=== PATIENT | female | born 1990 | race Caucasian/White ===

== ENCOUNTER 2016-09-02 08:09 | Emergency (ER) | payer MEDICAID ==
[~2016-09-02] VITALS: Ht 160 cm; Wt 58.5 kg
[~2016-09-02 08:09] MED LIST: ACET325T38 PO; AMOX-358 PO; AMOX500C2 PO; BENZ56AE TP; CLIN150C17 PO; CODE-54 PO; DBC1O30 TOP; DCS100C PO; FERR-74 PO; FRS325T PO; IBP600T1 PO; IBUP-1773 PO; LACT1CAP62 PO; METR500T PO; PREN1TAB39 PO
[2016-09-02 08:34] LABS: BASOPHILS % (AUTO) 0 % (0-10); EOSINOPHILS % (AUTO) 0 % (0-10); LYMPHOCYTES # (AUTO) 1.2 X 10^3 (1.0-4.0); LYMPHOCYTES % (AUTO) 11 % (12-44); MEAN CORPUSCULAR HEMOGLOBIN 28 PG (25-34); MEAN CORPUSCULAR HGB CONC 34 G/DL (32-36); MEAN CORPUSCULAR VOLUME 82 FL (80-99); MEAN PLATELET VOLUME 10.4 FL (7.4-10.4); MONOCYTES # (AUTO) 0.2 X 10^3 (0.0-1.0); MONOCYTES % (AUTO) 2 % (0-12); NEUTROPHILS # (AUTO) 9.7 X 10^3 (1.8-7.8); NEUTROPHILS % (AUTO) 88 % (42-75); PLATELET COUNT 313 10^3/uL (130-400); RED BLOOD COUNT 5.26 10^6/uL (4.35-5.85); RED CELL DISTRIBUTION WIDTH 12.9 % (10.0-14.5); WHITE BLOOD COUNT 11.1 10^3/uL (4.3-11.0)
[2016-09-02 08:54] LABS: ALANINE AMINOTRANSFERASE 13 U/L (0-55); ALBUMIN 4.7 G/DL (3.2-4.5); ANION GAP 12 MMOL/L (5-14); ASPARTATE AMINO TRANSFERASE 15 U/L (5-34); BILIRUBIN,TOTAL 0.7 MG/DL (0.1-1.0); BLOOD UREA NITROGEN 8 MG/DL (7-18); BUN/CREATININE RATIO 11; CALCIUM 9.8 MG/DL (8.5-10.1); CARBON DIOXIDE 21 MMOL/L (21-32); CHLORIDE 107 MMOL/L (98-107); CREATININE SERUM 0.76 MG/DL (0.60-1.30); GFR ESTIMATED > 60; GLUCOSE 113 MG/DL (70-105); SODIUM 140 MMOL/L (135-145); TOTAL PROTEIN 8.2 G/DL (6.4-8.2)
[2016-09-02 09:34] LABS: BAND NEUTROPHILS 0 %; BASOPHILS % (MANUAL) 0 %; EOSINOPHILS % (MANUAL) 0 %; LYMPHOCYTES % (MANUAL) 8 %; NEUTROPHILS % (MANUAL) 88 %
--- NOTE | 2016-09-02 10:40 | ED Cardiac General ---
History of Present Illness General Chief Complaint: Cardiac/General Problems Stated Complaint: IRR HEART RATE/CHEST PRESSURE Nursing Triage Note: PT REPORTS PALPITATIONS AND DIZZINESS UPON WAKING FOR THE LAST 2 DAYS. SHE REPORTS BEING SEEN AND TX AT [facility] LAST NOC FOR SAME S/S. PT DENIES CP, SOA, N/V. Source: patient Exam Limitations: no limitations History of Present Illness Time seen by provider: 10:39 Initial Comments To ER with chest tightness and palpitations with exertion since yesterday. Denies any unilateral leg swelling. She was seen at [facility] last night for the same. She denies shortness of breath nausea or vomiting. She denies fevers or chills but she's had a similar episode several years ago but nothing was found with this. Timing/Duration: 1-2 days Severity: moderate Prior CP/Workup: no prior chest pain NTG SL CHRISTIAN SCIENCE PRACTITIONER: No ASA po CHRISTIAN SCIENCE PRACTITIONER: No Allergies and Home Medications Allergies Coded Allergies: butorphanol (Unverified Allergy, Unknown, 09/29/15) hallucinations Home Medications Ibuprofen 600 Mg Tablet #40 600 MG PO Q6H Prescribed by: KATRINA WANG on 09/22/15 0914 Metoprolol Succinate 25 Mg Tab.er.24h #20 25 MG PO DAILY Prescribed by: LISS ALCANTARA on 09/02/16 1212 Review of Systems Constitutional: see HPI EENTM: No Symptoms Reported Respiratory: No Symptoms Reported Cardiovascular: See HPIDenies Irregular Heart Rate, Denies Lightheadedness, PalpitationsDenies Syncope Gastrointestinal: See HPI Genitourinary: No Symptoms Reported Musculoskeletal: no symptoms reported Skin: no symptoms reported Psychiatric/Neurological: No Symptoms Reported Endocrine: No Symptoms Reported Hematologic/Lymphatic: No Symptoms Reported Past Qdbnvzk-Drwpiw-Tdgiaf Hx Patient Social History Alcohol Use: Denies Use Recreational Drug Use: No Smoking Status: Never a Smoker Recent Foreign Travel: No Contact w/Someone Who Travel: No Recent Infectious Disease Expo: No Recent Hopitalizations: No Immunizations Up To Date Tetanus Booster (TDap): Less than 5yrs PED Vaccines UTD: Yes Date of Influenza Vaccine: Apr 25, 2016 Surgeries HX Surgeries: Yes (T&A) Surgeries: Adenoidectomy, Tonsillectomy Respiratory Hx Respiratory Disorders: No Cardiovascular Hx Cardiac Disorders: No Neurological Hx Neurological Disorders: No Reproductive System Hx Reproductive Disorders: No Female Reproductive Disorders: Denies Genitourinary Hx Genitourinary Disorders: No Gastrointestinal Hx Gastrointestinal Disorders: No Musculoskeletal Hx Musculoskeletal Disorders: No Endocrine Hx Endocrine Disorders: No HEENT HX ENT Disorders: No Cancer Hx Cancer: No Psychosocial Hx Psychiatric Problems: No Integumentary HX Skin/Integumentary Disorder: No Blood Transfusions Hx Blood Disorders: No Adverse Reaction to a Blood Tr: No Family Medical History Family Medial History: FH: skin cancer 19 FATHER, Onset:40's - 50 Thyroid disease 19 FATHER, Onset:40's - 50 Physical Exam Vital Signs Vital Sign - Last 12Hours 09/02/16 08:10 Temp 97.4 Pulse 110 Resp 16 B/P 122/76 Pulse Ox 99 Capillary Refill : Less Than 3 Seconds General Appearance: No Apparent Distress WD/WN HEENT: PERRL/EOMI TMs Normal Respiratory: No Accessory Muscle Use No Respiratory Distress Cardiovascular: No Edema No Murmur Normal Peripheral Pulses Tachycardia (110- 120 sinus. Upon standing heart rate increases to 140-150 without a decrease in blood pressure) Gastrointestinal: Normal Bowel Sounds Non Tender Soft Extremity: Normal Capillary Refill Normal Inspection Neurologic/Psychiatric: Alert Oriented x3 No Motor/Sensory Deficits Skin: Normal Color Warm/Dry Progress/Results/Core Measures Results/Orders Lab Results Laboratory Tests Test 09/02/16 08:25 09/02/16 08:35 09/02/16 11:30 Range/Units Alanine Aminotransferase (ALT/SGPT) 13 0-55 U/L Albumin 4.7 H 3.2-4.5 G/DL Alkaline Phosphatase 69 40-136 U/L Anion Gap 12 5-14 MMOL/L Aspartate Amino Transf (AST/SGOT) 15 5-34 U/L BUN/Creatinine Ratio 11 Band Neutrophils 0 % Basophils # (Auto) 0.0 0.0-0.1 10^3/uL Basophils % (Manual) 0 % Basophils (%) (Auto) 0 0-10 % Blood Morphology Comment NORMAL Blood Urea Nitrogen 8 7-18 MG/DL Calcium Level 9.8 8.5-10.1 MG/DL Carbon Dioxide Level 21 21-32 MMOL/L Chloride Level 107 98-107 MMOL/L Creatinine 0.76 0.60-1.30 MG/DL Eosinophils # (Auto) 0.0 0.0-0.3 10^3/uL Eosinophils % (Manual) 0 % Eosinophils (%) (Auto) 0 0-10 % Estimat Glomerular Filtration Rate > 60 Glucose Level 113 H 70-105 MG/DL Hematocrit 43 35-52 % Hemoglobin 14.6 11.5-16.0 G/DL Lymphocytes # (Auto) 1.2 1.0-4.0 X 10^3 Lymphocytes % (Manual) 8 % Lymphocytes (%) (Auto) 11 L 12-44 % Mean Corpuscular Hemoglobin 28 25-34 PG Mean Corpuscular Hemoglobin Concent 34 32-36 G/DL Mean Corpuscular Volume 82 80-99 FL Mean Platelet Volume 10.4 7.4-10.4 FL Monocytes # (Auto) 0.2 0.0-1.0 X 10^3 Monocytes % (Manual) 4 % Monocytes (%) (Auto) 2 0-12 % Neutrophils # (Auto) 9.7 H 1.8-7.8 X 10^3 Neutrophils % (Manual) 88 % Neutrophils (%) (Auto) 88 H 42-75 % Platelet Count 313 130-400 10^3/uL Potassium Level 4.0 3.6-5.0 MMOL/L Red Blood Count 5.26 4.35-5.85 10^6/uL Red Cell Distribution Width 12.9 10.0-14.5 % Serum Test, Qualitative NEGATIVE NEGATIVE Sodium Level 140 135-145 MMOL/L Thyroid Stimulating Hormone (TSH) 1.15 0.35-4.94 UIU/ML Total Bilirubin 0.7 0.1-1.0 MG/DL Total Protein 8.2 6.4-8.2 G/DL White Blood Count 11.1 H 4.3-11.0 10^3/uL D-Dimer 0.33 0.00-0.49 UG/ML Ur Tricyclic Antidepressants Screen NEGATIVE NEGATIVE Urine Amphetamines Screen NEGATIVE NEGATIVE Urine Bacteria FEW H /HPF Urine Barbiturates Screen NEGATIVE NEGATIVE Urine Benzodiazepines Screen NEGATIVE NEGATIVE Urine Bilirubin NEGATIVE NEGATIVE Urine Cannabinoids Screen NEGATIVE NEGATIVE Urine Casts NONE /LPF Urine Clarity VERY CLOUDY H Urine Cocaine Screen NEGATIVE NEGATIVE Urine Color YELLOW Urine Crystals NONE /LPF Urine Culture Indicated NO Urine Glucose (UA) NEGATIVE NEGATIVE Urine Ketones 3+ H NEGATIVE Urine Leukocyte Esterase 2+ H NEGATIVE Urine Methadone Screen NEGATIVE NEGATIVE Urine Methamphetamines Screen NEGATIVE NEGATIVE Urine Mucus NEGATIVE /LPF Urine Nitrite NEGATIVE NEGATIVE Urine Opiates Screen NEGATIVE NEGATIVE Urine Oxycodone Screen NEGATIVE NEGATIVE Urine Phencyclidine Screen NEGATIVE NEGATIVE Urine Propoxyphene Screen NEGATIVE NEGATIVE Urine Protein 2+ H NEGATIVE Urine RBC NONE /HPF Urine RBC (Auto) NEGATIVE NEGATIVE Urine Specific [place] 1.025 H 1.016-1.022 Urine Squamous Epithelial Cells TNTC H /HPF Urine Urobilinogen NORMAL NORMAL MG/DL Urine WBC NONE /HPF Urine pH 6 5-9 My Orders Orders-LISS ALCANTARA APRN Ua Culture If Indicated (09/02/16 10:34) Drug Screen Stat (Urine) (09/02/16 10:34) Thyroid Stimulating Hormone (09/02/16 10:34) Fibrin Degradation Products (09/02/16 10:38) Ns Iv 1000 Ml (Sodium Chloride 0.9%) (09/02/16 10:45) Metoprolol Tartrate (Ir) Tab (Lopressor (09/02/16 10:45) Chest 1 View, Ap/Pa Only (09/02/16 10:41) Ketorolac Injection (Toradol Injection) (09/02/16 12:30) Medications Given in ED Current Medications Medications Dose Ordered Sig/Norman Route Start Time Stop Time Status Last Admin Dose Admin Metoprolol Tartrate 25 mg ONCE ONCE PO 09/02/16 10:45 09/02/16 10:46 DC 09/02/16 10:48 25 MG Vital Signs/I&O Vital Sign - Last 12Hours 09/02/16 08:10 Temp 97.4 Pulse 110 Resp 16 B/P 122/76 Pulse Ox 99 Blood Pressure Mean: 91 Departure Communication Progress Notes 1208- after 1 L of IV fluids then 25 mg of metoprolol tartrate, patient's heart rate is 85 sinus at rest, increases to 100 with standing without change in blood pressure. We'll have her follow-up with cardiology. I discussed the possibility of dehydration/volume depletion but she states that she drinks well and can't imagine herself to be dehydrated. Impression Impression: Primary Impression: Orthostatic tachycardia Disposition: 01 HOME, SELF-CARE Condition: Stable Departure-Patient Inst. Decision time for Depature: 12:11 Referrals: SWATI MATHEWS MD FACP FACC CCDS Karely MOSQUERA MD, BASHAR J MD NO,LOCAL PHYSICIAN (PCP) Primary Care Physician Patient Instructions: Tachycardia Add. Discharge Instructions: 1. Return tO Er for any concerns 2. Follow up with a md allergy immunology of your choosing. 3. All discharge instructions reviewed with patient and/or family. Voiced understanding. Scripts Metoprolol Succinate (Toprol Xl)25 Mg Tab.er.24h25 Mg PO DAILY #20 TAB Prov:LISS ALCANTARA APRN 09/02/16 LISS ALCANTARA APRN Sep 02, 2016 10:40
[2016-09-02] MEDS ORDERED: meTOprolol TARTRATE 25 MG (LOPRESSOR) TABLET PO ONE (10:45)
[2016-09-02] MEDS ORDERED: NS IV 1000 ML 1,000 ML IV SCH (10:45)
--- NOTE | 2016-09-02 11:09 | Diagnostic Imaging Report ---
Portable upright radiograph of the chest. INDICATION: Dizziness. Irregular heartbeat. FINDINGS: The lungs are clear. The heart size is normal. There is no effusion or pneumothorax. The mediastinum and mechelle appear unremarkable. IMPRESSION: Unremarkable exam. Dictated by: Dictated on workstation # [id number]
[2016-09-02 11:39] LABS: BILIRUBIN,URINE NEGATIVE (NEGATIVE); KETONES,URINE 3+ (NEGATIVE); LEUKOCYTE ESTERASE ,URINE 2+ (NEGATIVE); NITRITE,URINE NEGATIVE (NEGATIVE); PH,URINE 6 (5-9); PROTEIN,URINE 2+ (NEGATIVE); UROBILINOGEN,URINE NORMAL (NORMAL)
[2016-09-02 11:52] LABS: SQUAMOUS EPITHELIAL CELL,UR TNTC /HPF
[2016-09-02] MEDS ORDERED: METO-351 PO (12:12)
[2016-09-02] MEDS ORDERED: KETOROLAC 30 MG/ML VIAL IVP ONE (12:30)
[2016-09-02 12:35] VITALS: BP 139/89
== END 2016-09-02 12:35 | disposition home or self-care (01) ==
LOC: EDUNIT# 08:09 → ER 08:12
DX: R00.0 Tachycardia, unspecified (principal); R42 Dizziness and giddiness
CPT/HCPCS: 36415; 71010; 80053; 80306; 81000; 84443; 84703; 85007; 85027; 85379; 93005; 96361; 96374

== ENCOUNTER 2016-09-04 14:08 | Emergency (ER) | payer MEDICAID ==
[~2016-09-04] VITALS: Ht 160 cm; Wt 58.5 kg
[~2016-09-04 14:08] MED LIST changes: +METO-351 PO
--- NOTE | 2016-09-04 15:30 | ED Cardiac General ---
History of Present Illness General Chief Complaint: Cardiac/General Problems Stated Complaint: PRESSURE IN CHEST Nursing Triage Note: patient reports being dizzy and lightheaded. patient reports being evaluated here 2 days ago for tachycardia and started new medication. patient reports standing up and walking increases the pain Source: patient Exam Limitations: no limitations History of Present Illness Time seen by provider: 15:25 Initial Comments The patient is a 26-year-old white female here on Saturday 09/02 for similar complaint. At that time she exhibited a resting pulse at 110 without any rhythm abnormality. When she stood up it went to 130-40 range. This was a new complaint for her. There ve been no other change in her life. After an unrevealing workup she was empirically placed on metoprolol and asked to call cardiology for an appointment. She reports she has been less aware of palpitations but continues to feel lightheaded and as if she is about to fall on standing. She repeatedly expresses concern about why this keeps happening. She was informed that the EKG on admission at this time showed the rate to be in the 70s. Severity: mild Allergies and Home Medications Allergies Coded Allergies: butorphanol (Unverified Allergy, Unknown, 09/29/15) hallucinations Home Medications Ibuprofen 600 Mg Tablet #40 600 MG PO Q6H Prescribed by: KATRINA WANG on 09/22/15 0914 Metoprolol Succinate 25 Mg Tab.er.24h #20 25 MG PO DAILY Prescribed by: LISS ALCANTARA on 09/02/16 1212 Review of Systems Constitutional: see HPI EENTM: No Symptoms Reported Respiratory: No Symptoms Reported Cardiovascular: See HPI Chest Pain Lightheadedness Palpitations Gastrointestinal: No Symptoms Reported Genitourinary: No Symptoms Reported Musculoskeletal: no symptoms reported Skin: no symptoms reported Psychiatric/Neurological: No Symptoms Reported Endocrine: No Symptoms Reported Hematologic/Lymphatic: No Symptoms Reported Past Yltwuxh-Wxegkz-Skihmj Hx Patient Social History Alcohol Use: Denies Use Recreational Drug Use: No Smoking Status: Never a Smoker Recent Foreign Travel: No Contact w/Someone Who Travel: No Recent Infectious Disease Expo: No Recent Hopitalizations: No Immunizations Up To Date Tetanus Booster (TDap): Less than 5yrs PED Vaccines UTD: Yes Date of Influenza Vaccine: Apr 25, 2016 Surgeries HX Surgeries: Yes (T&A) Surgeries: Adenoidectomy, Tonsillectomy Respiratory Hx Respiratory Disorders: No Cardiovascular Hx Cardiac Disorders: No Neurological Hx Neurological Disorders: No Reproductive System Hx Reproductive Disorders: No Female Reproductive Disorders: Denies Genitourinary Hx Genitourinary Disorders: No Gastrointestinal Hx Gastrointestinal Disorders: No Musculoskeletal Hx Musculoskeletal Disorders: No Endocrine Hx Endocrine Disorders: No HEENT HX ENT Disorders: No Cancer Hx Cancer: No Psychosocial Hx Psychiatric Problems: No Integumentary HX Skin/Integumentary Disorder: No Blood Transfusions Hx Blood Disorders: No Adverse Reaction to a Blood Tr: No Family Medical History Family Medial History: FH: skin cancer 19 FATHER, Onset: Thyroid disease 19 FATHER, Onset: Physical Exam Vital Signs Vital Sign - Last 12Hours 09/04/16 14:32 Temp 97.8 Pulse 83 Resp 18 B/P 135/94 Pulse Ox 100 O2 Delivery Room Air Capillary Refill : Less Than 3 Seconds General Appearance: No Apparent Distress WD/WN HEENT: Normal ENT Inspection Respiratory: Chest Non Tender Lungs Clear Normal Breath Sounds No Accessory Muscle Use No Respiratory Distress Cardiovascular: Regular Rate, Rhythm No Edema No Gallop No JVD No Murmur Normal Peripheral Pulses Gastrointestinal: Normal Bowel Sounds No Organomegaly No Pulsatile Mass Non Tender Neurologic/Psychiatric: Alert Oriented x3 Skin: Normal Color Warm/Dry Lymphatic: No Adenopathy Progress/Results/Core Measures Results/Orders Vital Signs/I&O Vital Sign - Last 12Hours 09/04/16 14:32 Temp 97.8 Pulse 83 Resp 18 B/P 135/94 Pulse Ox 100 O2 Delivery Room Air Blood Pressure Mean: 108 Departure Impression Impression: Primary Impression: light headedness Disposition: 01 HOME, SELF-CARE Condition: Stable/Unchanged Departure-Patient Inst. Decision time for Depature: 15:30 Referrals: NO,LOCAL PHYSICIAN (PCP) Primary Care Physician Patient Instructions: Dizziness, Nonvertigo, (DC) Add. Discharge Instructions: All discharge instructions reviewed with patient and/or family. Voiced understanding. Continue metoprolol. Call cardiology again to establish appointment. ROSEANNA RAYMUNDO MD Sep 04, 2016 15:30
[2016-09-04 15:33] VITALS: BP 121/88
== END 2016-09-04 15:35 | disposition home or self-care (01) ==
LOC: EDUNIT# 14:08 → ER 14:10
DX: R42 Dizziness and giddiness (principal); Z79.899 Other long term (current) drug therapy
CPT/HCPCS: 93005

== ENCOUNTER → 2016-09-13 | Outpatient (CLI) | payer MEDICAID ==
--- NOTE | 2016-09-14 08:32 | ECHOCARDIOGRAPHY REPORT ---
PROCEDURE PHYSICIAN: SWATI VILLARREAL DATE OF PROCEDURE: 09/13/2016 TWO DIMENSIONAL ECHOCARDIOGRAM REPORT PRIMARY PHYSICIAN: Dr. Shah OTHER PHYSICIAN: Luz Lawrence APRN REFERRING PHYSICIAN: ORDERING PHYSICIAN: Dr. Villarreal INDICATION FOR THE PROCEDURE: 1. Palpitations. 2. Shortness of breath. MEASUREMENTS DERIVED VALUES LV DIAMETER (LAX) NORMALS NORMALS Diastolic 4.4 (3.6-5.2) Eject. Fract. (60%+/-6%) Systolic (2.3-3.9) Diastolic Vol. % Shortening (0.22-0.42) Systolic Vol. Aortic Root 2.6 IVS THICKNESS Diastolic 0.7 (0.6-1.1) LVPW THICKNESS Diastolic 0.8 (0.6-1.1) LA DIAMETER Systolic 2.2 (2.1-3.7) DESCRIPTION: Two-dimensional echocardiography showed normal global left ventricular systolic function with normal regional wall motion. Aortic, mitral and tricuspid valve leaflets show good leaflet excursion. There is no significant pericardial effusion. Left ventricular ejection fraction is 50 to 55%. Doppler imaging shows trivial, mitral and tricuspid regurgitation. Pulmonary artery systolic pressure is estimated to be within normal limits. There is no Doppler evidence of any significant valvular stenosis. Pulmonary artery systolic pressure is estimated to be approximately 20 mmHg. There is no evidence of any significant intracardiac shunt on this transthoracic echocardiographic study. Inferior vena cava is of normal size and appears to have normal inspiratory collapse. CONCLUSIONS: 1. Normal global left ventricular systolic function with an ejection fraction of 50 to 55%. 2. Trivial mitral and tricuspid regurgitation (within normal limits). 3. Pulmonary artery systolic pressure is estimated to be approximately 20 mmHg. 4. No evidence of any significant valvular stenosis. Job ID: [id number] Dictated Date: 09/13/2016 17:11:31 Assistant Signal Maintainer Date: 09/14/2016 08:26:03 / bharathi
--- NOTE | 2016-09-14 09:15 | STRESS TEST ---
PROCEDURE PHYSICIAN: SWATI VILLARREAL DATE OF PROCEDURE: 09/13/2016 EXERCISE STRESS ECHOCARDIOGRAPHY REPORT: ORDERING PHYSICIAN: Dr. Villarreal PRIMARY PHYSICIAN: Dr. Shah OTHER PHYSICIAN: ] Luz Lawrence APRN CLINICAL DIAGNOSIS: Palpitations or shortness of breath. Baseline echocardiography showed normal left ventricular systolic function with normal regional wall motion. Subsequently, exercise was carried out on a treadmill. Lauro protocol was employed. Heart rate and blood pressure responses to exercise were normal. There was no significant exercise-induced arrhythmia. There did not appear to be significant ST segment deviation with exercise, although there was considerable baseline artifact at peak exercise. There was subtle ST segment abnormality at baseline which became somewhat more pronounced with in the recovery phase and then returned towards baseline. Echocardiography was repeated immediately post exercise and it shows normal augmentation of wall motion and ejection fraction. No regional wall motion abnormalities are identified. The patient exercised for a total of 12 minutes in the Lauro protocol and attained 12.8 METs of workload and 108% of maximum predicted heart rate. CONCLUSIONS: 1. No evidence of any significant exercise-induced myocardial ischemia or cardiac arrhythmia on this study. 2. No evidence of myocardial infarction on this study. 3. Normal global left ventricular systolic function with an ejection fraction of 50 to 55% baseline. Job ID: [id number] Dictated Date: 09/13/2016 17:18:01 Promotional Marketing Analyst Date: 09/14/2016 09:11:01 / bharathi
== END ==
LOC: CARD 09:30
PROVIDERS: ATTEND Internal Medicine Cardiovascular Disease
DX: R06.02 Shortness of breath (principal); R03.0 Elevated blood-pressure reading, without diagnosis of hypertension; R00.2 Palpitations
CPT/HCPCS: 93306; 93351

== ENCOUNTER → 2020-03-05 | Outpatient (CLI) | payer MEDICAID ==
[~2020-03-05] MED LIST changes: +DOXY100T2 PO; -FERR-74 PO; +FERR325T18 PO
--- NOTE | 2020-03-05 13:57 | Diagnostic Imaging Report ---
INDICATION: survey. TECHNIQUE: Multiple real-time grayscale images were obtained over the gravid uterus. COMPARISON: None FINDINGS: There is a single live fetus in a cephalic presentation. heart rate was recorded at 144 bpm. Placenta is posterior. No previa is detected. Amniotic fluid volume and index is 8.5 cm. Cervical length is 5.4 cm. kidneys, bladder and stomach are unremarkable. brain is unremarkable. There is a four-chamber heart. There is a three-vessel cord with normal insertion. spine is unremarkable. Biometrical measurements are as follows: Biparietal 3.99 cm, age 18 weeks 1 days. Head circumference 15.41 cm, age 18 weeks 3 days. Abdominal circumference 12.24 cm, age 18 weeks 0 days. Femur length 2.84 cm, age 18 weeks 5 days. Sonographic estimate age: 18 weeks 3 days. Sonographic estimated date of delivery: 08/03/2020. Estimated Weight: 233 gm (+/- 34 gm). LMP percentile: 45%. heart rate: 144 beats per minute. number: 1 of 1. IMPRESSION: Single live IUP at 18 weeks 3 days gestational age. Estimated date of confinement sonographically is 08/03/2020. Dictated by: Dictated on workstation # [id number]
== END ==
LOC: RAD 12:42
PROVIDERS: ATTEND Obstetrics & Gynecology
DX: O09.292 Supervision of pregnancy with other poor reproductive or obstetric history, second trimester (principal); Z3A.18 18 weeks gestation of pregnancy
CPT/HCPCS: 76805

== ENCOUNTER 2020-05-19 23:03 | Emergency (ER) | payer MEDICAID ==
[~2020-05-19] VITALS: Ht 160 cm; Wt 63.5 kg
[2020-05-19] MEDS ORDERED: FAMOTIDINE 20MG/2ML IV (PEPCID) IV STA (23:14)
--- NOTE | 2020-05-19 23:14 | ED Chest Pain ---
General Stated Complaint: SOA/CHEST PAIN/POUNDING HEART BEAT Source: patient Exam Limitations: no limitations History of Present Illness Date Seen by Provider: May 19, 2020 Time Seen by Provider: 23:13 Initial Comments 29-year-old female presents with discomfort in her chest and throat. She reports that happened at latter-day. That last for about 15 minutes. She had, burning sensation. Patient is approximately 29 weeks , she is a . Patient reports some mild shortness of breath and felt like maybe her heart was pounding. Her symptoms have been resolved for a couple hours. Patient presented the evening because she wanted to just be further evaluated. She does report she has a history of anemia with this that she knows of. She has no symptoms at this time. Allergies and Home Medications Allergies Coded Allergies: butorphanol (Unverified Allergy, Unknown, 09/29/15) hallucinations Home Medications Doxycycline Hyclate 100 Mg Tablet, 100 MG PO BID Prescribed by: WILMAR TUCKER on 11/30/17 0347 Ibuprofen 600 Mg Tablet, 600 MG PO Q6H Prescribed by: KATRINA WANG on 09/22/15 0914 Metoprolol Succinate 25 Mg Tab.er.24h, 25 MG PO DAILY Prescribed by: LISS ALCANTARA on 09/02/16 1212 Patient Home Medication List Home Medication List Reviewed: Yes Review of Systems Review of Systems Constitutional: No chills, No fever EENTM: See HPI Respiratory: See HPI Cardiovascular: See HPI Gastrointestinal: No Symptoms Reported Genitourinary: No Symptoms Reported Musculoskeletal: no symptoms reported Skin: no symptoms reported Psychiatric/Neurological: No Symptoms Reported Endocrine: No Symptoms Reported Past Jbkutro-Hwruiy-Jlbfop Hx Past Med/Social Hx: Reviewed Nursing Past Med/Soc Hx Patient Social History Recent Foreign Travel: No Contact w/Someone Who Travel: No Recent Hopitalizations: No Immunizations Up To Date Tetanus Booster (TDap): Less than 5yrs PED Vaccines UTD: Yes Date of Influenza Vaccine: Apr 25, 2016 Past Medical History Surgeries: Yes (T&A) Adenoidectomy, Tonsillectomy Respiratory: No Cardiac: No Neurological: No Reproductive Disorders: No Female Reproductive Disorders: Denies Gastrointestinal: No Musculoskeletal: No Endocrine: No HEENT: No Cancer: No Psychosocial: No Integumentary: No Blood Disorders: No Adverse Reaction/Blood Tranf: No Family Medical History FH: skin cancer 19 FATHER, Onset:40's - 50 Thyroid disease 19 FATHER, Onset:40's - 50 Physical Exam Vital Signs Vital Signs - First Documented 05/19/20 23:07 Temp 36.1 Pulse 85 Resp 18 B/P (MAP) 143/95 (111) Pulse Ox 100 O2 Delivery Room Air Capillary Refill : Height, Weight, BMI Height: 5'3.00" Weight: 122lbs. 0.0oz. 55.335496uo; 22.85 BMI Method:Stated General Appearance: No Apparent Distress, WD/WN HEENT: Moist Mucous Membranes Neck: Non Tender Respiratory: Lungs Clear, Normal Breath Sounds Cardiovascular: Regular Rate, Rhythm, No Edema Gastrointestinal: Other (gravid appearance, soft, nontender) Extremity: Normal Capillary Refill, Normal Inspection Neurologic/Psychiatric: Alert, Oriented x3, Normal Mood/Affect, cable swager II-XII Norm as Tested Skin: Pallor Progress/Results/Core Measures Results/Orders Lab Results Laboratory Tests Test 05/19/20 23:11 Range/Units White Blood Count 13.3 H 4.3-11.0 10^3/uL Red Blood Count 4.02 3.80-5.11 10^6/uL Hemoglobin 10.6 L 11.5-16.0 g/dL Hematocrit 33 L 35-52 % Mean Corpuscular Volume 83 80-99 fL Mean Corpuscular Hemoglobin 26 25-34 pg Mean Corpuscular Hemoglobin Concent 32 32-36 g/dL Red Cell Distribution Width 13.7 10.0-14.5 % Platelet Count 196 130-400 10^3/uL Mean Platelet Volume 9.9 9.0-12.2 fL Immature Granulocyte % (Auto) 2 % Neutrophils (%) (Auto) 75 42-75 % Lymphocytes (%) (Auto) 15 12-44 % Monocytes (%) (Auto) 6 0-12 % Eosinophils (%) (Auto) 1 0-10 % Basophils (%) (Auto) 0 0-10 % Neutrophils # (Auto) 10.0 H 1.8-7.8 10^3/uL Lymphocytes # (Auto) 2.0 1.0-4.0 10^3/uL Monocytes # (Auto) 0.8 0.0-1.0 10^3/uL Eosinophils # (Auto) 0.2 0.0-0.3 10^3/uL Basophils # (Auto) 0.0 0.0-0.1 10^3/uL Immature Granulocyte # (Auto) 0.3 H 0.0-0.1 10^3/uL Sodium Level 139 135-145 MMOL/L Potassium Level 3.7 3.6-5.0 MMOL/L Chloride Level 106 98-107 MMOL/L Carbon Dioxide Level 22 21-32 MMOL/L Anion Gap 11 5-14 MMOL/L Blood Urea Nitrogen 5 L 7-18 MG/DL Creatinine 0.57 L 0.60-1.30 MG/DL Estimat Glomerular Filtration Rate > 60 BUN/Creatinine Ratio 9 Glucose Level 108 H 70-105 MG/DL Calcium Level 9.1 8.5-10.1 MG/DL Corrected Calcium 9.3 8.5-10.1 MG/DL Total Bilirubin 0.3 0.1-1.0 MG/DL Aspartate Amino Transf (AST/SGOT) 14 5-34 U/L Alanine Aminotransferase (ALT/SGPT) 12 0-55 U/L Alkaline Phosphatase 88 40-136 U/L Troponin I < 0.028 <0.028 NG/ML Total Protein 7.1 6.4-8.2 GM/DL Albumin 3.8 3.2-4.5 GM/DL Lipase 60 8-78 U/L My Orders Orders - MATAMOROS,OZIEL L DO Cbc With Automated Diff (05/19/20 23:14) Comprehensive Metabolic Panel (05/19/20 23:14) Lipase (05/19/20 23:14) Troponin I (05/19/20 23:14) Ekg Tracing (05/19/20 23:14) Famotidine Injection (Pepcid Injection) (05/19/20 23:14) Vital Signs/I&O 05/19/20 05/19/20 23:07 23:07 Temp 36.1 Pulse 85 Resp 18 B/P (MAP) 143/95 (111) Pulse Ox 100 O2 Delivery Room Air Initial ECG Impression Date: May 19, 2020 Initial ECG Impression Time: 23:09 Initial ECG Rhythm: Normal Sinus Initial ECG Intervals: Normal Initial ECG Impression: Normal Comment NSR, no acute changes Departure Impression Primary Impression: Chest pain Qualified Codes: R07.9 - Chest pain, unspecified Disposition: HOME, SELF-CARE Condition: Stable Departure-Patient Inst. Referrals: MURPHY SOLIS DO (PCP) Primary Care Physician ALCON ARMSTRONG APRN (Family) Primary Care Physician Patient Instructions: Chest Pain That Is Not Caused by the Heart (DC), Acid Reflux (Gastroesophageal Reflux Disease), Adult (DC) Add. Discharge Instructions: Follow-up with your primary care provider if symptoms become more frequent or recurrent. OZIEL MATAMOROS DO May 19, 2020 23:13
[2020-05-19 23:22] LABS: BASOPHILS % (AUTO) 0 % (0-10); EOSINOPHILS # (AUTO) 0.2 10^3/uL (0.0-0.3); EOSINOPHILS % (AUTO) 1 % (0-10); HEMATOCRIT 33 % (35-52); HEMOGLOBIN 10.6 g/dL (11.5-16.0); LYMPHOCYTES % (AUTO) 15 % (12-44); MEAN CORPUSCULAR HEMOGLOBIN 26 pg (25-34); MEAN CORPUSCULAR HGB CONC 32 g/dL (32-36); MEAN CORPUSCULAR VOLUME 83 fL (80-99); MEAN PLATELET VOLUME 9.9 fL (9.0-12.2); MONOCYTES # (AUTO) 0.8 10^3/uL (0.0-1.0); MONOCYTES % (AUTO) 6 % (0-12); NEUTROPHILS % (AUTO) 75 % (42-75); PLATELET COUNT 196 10^3/uL (130-400); WHITE BLOOD COUNT 13.3 10^3/uL (4.3-11.0)
[2020-05-19 23:32] LABS: ALBUMIN 3.8 GM/DL (3.2-4.5)
[2020-05-19 23:33] LABS: CHLORIDE 106 MMOL/L (98-107); POTASSIUM 3.7 MMOL/L (3.6-5.0); SODIUM 139 MMOL/L (135-145)
[2020-05-19 23:34] LABS: CALCIUM 9.1 MG/DL (8.5-10.1)
[2020-05-19 23:35] LABS: GLUCOSE 108 MG/DL (70-105); TOTAL PROTEIN 7.1 GM/DL (6.4-8.2)
[2020-05-19 23:36] LABS: CARBON DIOXIDE 22 MMOL/L (21-32)
[2020-05-19 23:37] LABS: BILIRUBIN,TOTAL 0.3 MG/DL (0.1-1.0)
[2020-05-19 23:38] LABS: ALKALINE PHOSPHATASE 88 U/L (40-136)
[2020-05-19 23:39] LABS: CREATININE SERUM 0.57 MG/DL (0.60-1.30); GFR ESTIMATED > 60
[2020-05-19 23:40] LABS: BUN/CREATININE RATIO 9
[2020-05-19 23:42] LABS: ALANINE AMINOTRANSFERASE 12 U/L (0-55); LIPASE 60 U/L (8-78)
[2020-05-20 00:10] VITALS: BP 114/75
== END 2020-05-20 00:14 | disposition home or self-care (01) ==
LOC: EDUNIT# 23:03 → ER 23:07
DX: O26.893 Other specified pregnancy related conditions, third trimester (principal); R07.9 Chest pain, unspecified; R06.02 Shortness of breath; Z88.5 Allergy status to narcotic agent; Z80.8 Family history of malignant neoplasm of other organs or systems; Z3A.29 29 weeks gestation of pregnancy
CPT/HCPCS: 36415; 80053; 83690; 84484; 85025; 93005

== ENCOUNTER 2020-06-21 21:34 | Outpatient (CLI) | payer SELFPAY ==
[~2020-06-21] VITALS: Ht 160 cm; Wt 66.5 kg
--- NOTE | 2020-06-21 21:39 | NUR ---
GENELILYMALGORZATANESTOR I presented to unit via ambulation from ED, with c/o BACK PAIN. NESTOR TRIANA I weighed, gowned, voided, and to bed. EFHM and TOCO applied, VS taken. GENELILYMALGORZATANESTOR I oriented to bed controls, call light, TV, heat, and A/C controls.
[2020-06-21 21:52] LABS: BILIRUBIN,URINE NEGATIVE (NEGATIVE); CLARITY,URINE CLEAR; COLOR,URINE YELLOW; GLUCOSE, URINE (UA) NEGATIVE (NEGATIVE); KETONES,URINE NEGATIVE (NEGATIVE); LEUKOCYTE ESTERASE ,URINE 2+ (NEGATIVE); NITRITE,URINE NEGATIVE (NEGATIVE); PROTEIN,URINE NEGATIVE (NEGATIVE)
[2020-06-21 21:53] VITALS: BP 134/83
[2020-06-21 21:56] VITALS: BP 134/83
[2020-06-21] MEDS ORDERED: PNV1TABL65 PO (21:58)
[2020-06-21 22:01] LABS: BACTERIA,URINE TRACE /HPF; WBC,URINE 25-50 /HPF
[2020-06-21] MEDS ORDERED: CEPH-507 PO (22:11)
[2020-06-21] MEDS ORDERED: CEPHALEXIN 250 MG (KEFLEX) CAP PO ONE (22:15)
--- NOTE | 2020-06-21 22:22 | NUR ---
Discharge instructions discussed with pt. Signature sheet signed, placed on chart. Pt ambulating off unit to private vehicle. No signs of distress noted.
--- NOTE | 2020-06-22 11:08 | Physician Query-Final Dx ---
Clinic Account Progress/Dx Physician Query: Please give diagnosis Please include # weeks gestation Date of Service Jun 21, 2020 at 21:34 SOLITARIO MATSON Jun 22, 2020 11:08
== END 2020-06-21 22:22 | disposition home or self-care (01) ==
LOC: WSo 21:34 → LDRP 21:35 → WSo 22:22
PROVIDERS: ATTEND Obstetrics & Gynecology
DX: O99.893 Other specified diseases and conditions complicating puerperium (principal); Z3A.33 33 weeks gestation of pregnancy; M54.9 Dorsalgia, unspecified
CPT/HCPCS: 81000; 87077; 87088; 99213

== ENCOUNTER 2020-07-19 11:01 | Outpatient (CLI) | payer OTHER ==
[~2020-07-19] VITALS: Ht 160 cm; Wt 65.9 kg
[~2020-07-19 11:01] MED LIST changes: +CEPH-507 PO; +PNV1TABL65 PO
--- NOTE | 2020-07-19 11:08 | NUR ---
NESTOR KOO I presented to unit via wheelchair from ED, accompanied by staff, with c/o POSS CONTRACTIONS/PRESSURE 37 WKS PREG. NESTOR KOO I weighed, gowned, voided, and to bed. EFHM and TOCO applied, VS taken. NESTOR KOO I oriented to bed controls, call light, TV, heat, and A/C controls.
[2020-07-19 11:20] VITALS: BP 132/80
--- NOTE | 2020-07-19 11:39 | NUR ---
Dr. Chew notified of patient's arrival, complaints, exam, and EFM tracing. New orders received.
[2020-07-19] MEDS ORDERED: FERR-84 PO (11:49)
--- NOTE | 2020-07-19 11:59 | NUR ---
Discharge instructions and medications reviewed with patient both written and verbally. Patient verbalizes understanding and questions answered.
--- NOTE | 2020-07-19 12:07 | NUR ---
Patient discharged at this time and ambulated from the unit with no signs or symptoms of distress noted.
--- NOTE | 2020-07-20 07:55 | Physician Query-Final Dx ---
SOLITARIO MATSON 07/20/20 0755: Clinic Account Progress/Dx Physician Query: Please give diagnosis Please include # weeks gestation Date of Service Jul 19, 2020 at 11:01 ANYI DE ANDA DO 07/20/20 0932: Clinic Account Progress/Dx DIAGNOSIS: Diagnosis 37 week IUP Irregular contractions SOLITARIO MATSON Jul 20, 2020 07:55 ANYI DE ANDA DO Jul 20, 2020 09:32
== END 2020-07-19 12:07 | disposition home or self-care (01) ==
LOC: LDRP 11:01 → WSo 11:01
PROVIDERS: ATTEND Obstetrics & Gynecology
DX: O62.8 Other abnormalities of forces of labor (principal); Z3A.37 37 weeks gestation of pregnancy
CPT/HCPCS: 99213

== ENCOUNTER 2020-07-27 02:12 | Inpatient (IN) | payer OTHER ==
[~2020-07-27] VITALS: Ht 160 cm; Wt 66.4 kg
[2020-07-27] VITALS (58 sets, daily range): BP systolic 106–153; BP diastolic 58–83
[~2020-07-27 02:12] MED LIST changes: +FERR-84 PO
--- NOTE | 2020-07-27 02:20 | NUR ---
NESTOR KOO I presented to unit via WC from ED, accompanied by ED staff, with c/o WATER BREAK. NESTOR KOO I weighed, gowned, voided, and to bed. EFHM and TOCO applied, VS taken. NESTOR KOO I oriented to bed controls, call light, TV, heat, and A/C controls.
[2020-07-27 02:39] LABS: BILIRUBIN,URINE NEGATIVE (NEGATIVE); CLARITY,URINE SL CLOUDY; COLOR,URINE YELLOW; GLUCOSE, URINE (UA) NEGATIVE (NEGATIVE); KETONES,URINE NEGATIVE (NEGATIVE); LEUKOCYTE ESTERASE ,URINE 1+ (NEGATIVE); NITRITE,URINE NEGATIVE (NEGATIVE); PROTEIN,URINE NEGATIVE (NEGATIVE)
[2020-07-27] MEDS ORDERED: D5 LR IV SOLUTION 1,000 ML IV ONE (02:52)
[2020-07-27 02:53] LABS: BACTERIA,URINE TRACE /HPF; SQUAMOUS EPITHELIAL CELL,UR 0-2 /HPF
[2020-07-27] MEDS ORDERED: MINERAL OIL CONCENTRATE 99.9% 15 ML UDC TOP PRN (03:00)
[2020-07-27] MEDS: D5 LR IV SOLUTION 1,000 ML IV SCH ×2 (03:07→11:02)
[2020-07-27 03:26] LABS: BASOPHILS % (AUTO) 0 % (0-10); EOSINOPHILS # (AUTO) 0.1 10^3/uL (0.0-0.3); EOSINOPHILS % (AUTO) 1 % (0-10); HEMATOCRIT 31 % (35-52); HEMOGLOBIN 9.6 g/dL (11.5-16.0); LYMPHOCYTES # (AUTO) 2.2 10^3/uL (1.0-4.0); LYMPHOCYTES % (AUTO) 14 % (12-44); MEAN CORPUSCULAR HEMOGLOBIN 24 pg (25-34); MEAN CORPUSCULAR HGB CONC 32 g/dL (32-36); MEAN CORPUSCULAR VOLUME 77 fL (80-99); MEAN PLATELET VOLUME 10.1 fL (9.0-12.2); MONOCYTES % (AUTO) 6 % (0-12); NEUTROPHILS # (AUTO) 12.2 10^3/uL (1.8-7.8); NEUTROPHILS % (AUTO) 77 % (42-75); PLATELET COUNT 183 10^3/uL (130-400); WHITE BLOOD COUNT 15.9 10^3/uL (4.3-11.0)
[2020-07-27 05:34] LABS: EOSINOPHILS % (MANUAL) 3 %; LYMPHOCYTES % (MANUAL) 14 %; MONOCYTES % (MANUAL) 8 %; NEUTROPHILS % (MANUAL) 75 %; RBC MORPH NORMAL
[2020-07-27] MEDS ORDERED: CATHETER FLUSH 10 ML SYR IV SCH ×2 (06:00→22:00)
--- NOTE | 2020-07-27 07:08 | History & Physical-OB ---
OB - Chief Complaint & HPI Date/Time Date of Admission: Date of Admission: Jul 27, 2020 at 02:52 Time Seen by a Provider: 08:00 Chief Complaint/History OB-Reason for Admission/Chief: Rupture of Membranes Hx : 5 Hx Para: 4 Expected Date of Delivery: Aug 04, 2020 Gestational Age in Weeks: 38 Gestational Age in Days: 6 Other reason for admission: Presents with complaint of SROM. Clear fluid Was cruz irregular on admission. Obvious ROM Admit for labor. Admission Nurse Assessment Rev: Yes History of Labs O+/- Rub I VDRL NR HBsAg- HIV - GBS - Hep C - Allergies and Home Medications Allergies Coded Allergies: butorphanol (Verified Adverse Reaction, Mild, 07/27/20) hallucinations Home Medications Ferrous Sulfate 325 Mg Tablet, 325 MG PO PRN, (Reported) Patient Home Medication List Home Medication List Reviewed: Yes OB - History Hx of Present Ultrasounds: Normal mid trimester US Obstetrical Complications: None Medical Complications: None Information Induced Hypertension: No Maternal Gestational Diabetes: No Hemorrhage: No Obstetrical History Hx : 5 Hx Para: 4 Hx # Term Pregnancies: 4 Number of Living Children: 4 Hx Termination: No Hx Multiple Gestation: No Hx Ectopic : No Hx Stillbirth: No Hx Complication: No Hx Induced Hypertens: No Hx Maternal Gestational Diabet: No Hx Hemorrhage: Yes (1st delivery) Delivery History Hx Dystocia: Yes (mild shoulder first delivery) Hx Forceps Assisted Delivery: No Hx Vacuum Extraction Assisted: No Hx Placenta Abnormality: No Hx Distress: No Hx Large For Gestational Age I: No Hx Small for Gestational Age I: No Hx Section: No Hx Vaginal Delivery Post C-Sec: No Hx Blood Disorders: No Adverse Rxn to Tranfusion: No Patient Past Medical History NC Social History/Family History HIV/AIDS: No Recent Infectious Disease Expo: No Sexually Transmitted Disease: No Alcohol Use: Denies Use Recreational Drug Use: No 2nd Hand Smoke Exposure: No Significant Family Hx Daughter with Vater, absent right radius Immunizations Hepatitis A: No Hepatitis B: No Tetanus Booster (TDap): Less than 5yrs () Rubella: immune RPR/VDRL: Negative GBS Status: Negative HBsAG: Negative OB - Admission Exam Physical Exam Vitals: Vital Signs 07/27/20 07/27/20 07/27/20 02:25 04:30 06:00 Temp 36.4 Pulse 103 Resp 18 B/P (MAP) 115/73 (87) Pulse Ox 99 O2 Delivery Room Air Abdomen: Gravid Cervical Dilatation: 3cm Effacement: 50% Station: Ballotable Membranes: Ruptured Amniotic Fluid: Clear Heart Rate: 140's Accelerations: Accelerations Present Decelerations: No Decelerations Short Term Variability: Present Argon Tester Variability: Average (6-25) Contractions on Admission: 6-10 Minutes Apart Labs Laboratory Tests Test 07/27/20 02:30 07/27/20 03:00 07/27/20 03:45 Range/Units Urine Color YELLOW Urine Clarity SL CLOUDY Urine pH 6.0 5-9 Urine Specific Comfort 1.015 L 1.016-1.022 Urine Protein NEGATIVE NEGATIVE Urine Glucose (UA) NEGATIVE NEGATIVE Urine Ketones NEGATIVE NEGATIVE Urine Nitrite NEGATIVE NEGATIVE Urine Bilirubin NEGATIVE NEGATIVE Urine Urobilinogen 0.2 < = 1.0 MG/DL Urine Leukocyte Esterase 1+ H NEGATIVE Urine RBC (Auto) NEGATIVE NEGATIVE Urine RBC NONE /HPF Urine WBC 2-5 /HPF Urine Squamous Epithelial Cells 0-2 /HPF Urine Crystals NONE /LPF Urine Bacteria TRACE /HPF Urine Casts NONE /LPF Urine Mucus NEGATIVE /LPF Urine Culture Indicated NO White Blood Count 15.9 H 4.3-11.0 10^3/uL Red Blood Count 3.98 3.80-5.11 10^6/uL Hemoglobin 9.6 L 11.5-16.0 g/dL Hematocrit 31 L 35-52 % Mean Corpuscular Volume 77 L 80-99 fL Mean Corpuscular Hemoglobin 24 L 25-34 pg Mean Corpuscular Hemoglobin Concent 32 32-36 g/dL Red Cell Distribution Width 15.4 H 10.0-14.5 % Platelet Count 183 130-400 10^3/uL Mean Platelet Volume 10.1 9.0-12.2 fL Immature Granulocyte % (Auto) 2 % Neutrophils (%) (Auto) 77 H 42-75 % Lymphocytes (%) (Auto) 14 12-44 % Monocytes (%) (Auto) 6 0-12 % Eosinophils (%) (Auto) 1 0-10 % Basophils (%) (Auto) 0 0-10 % Neutrophils # (Auto) 12.2 H 1.8-7.8 10^3/uL Lymphocytes # (Auto) 2.2 1.0-4.0 10^3/uL Monocytes # (Auto) 1.0 0.0-1.0 10^3/uL Eosinophils # (Auto) 0.1 0.0-0.3 10^3/uL Basophils # (Auto) 0.0 0.0-0.1 10^3/uL Immature Granulocyte # (Auto) 0.3 H 0.0-0.1 10^3/uL Neutrophils % (Manual) 75 % Lymphocytes % (Manual) 14 % Monocytes % (Manual) 8 % Eosinophils % (Manual) 3 % Blood Morphology Comment NORMAL OB - Assessment/Plan/Diagnosis Assessment Assessment: rupture of membranes Admission Dx 1. 38 + week gestation 2. ROM - not in active labor Admit for labor augmentation Anticipate Elan - Maico Venegas Admission Status: Inpatient Order (span 2 midnights) Reason for Inpatient Admission: LAbor Plan Plan: Expectant Management KATRINA WANG DO Jul 27, 2020 07:08
[2020-07-27] MEDS ORDERED: OXYTOCIN PRE-MIX DRIP 500 ML IV SCH ×2 (07:15→17:00)
[2020-07-27] MEDS ORDERED: LACTATED RINGERS 1,000 ML IV ONE (12:58)
[2020-07-27] MEDS ORDERED: fentaNYL 2 mcg/ml BUPIVA 0.125 100 ML ONE (13:07)
[2020-07-27] MEDS ORDERED: fentaNYL INJECTION 100 MCG/2 ML AMP ONE (13:57)
[2020-07-27] MEDS ORDERED: BUPIVACAINE 0.25% 30 ML (SENSORCAINE) VIAL ONE (13:57)
[2020-07-27] MEDS ORDERED: LIDOCAINE PF 2% 5 ML (XYLOCAINE) VIAL ONE (13:57)
--- NOTE | 2020-07-27 14:02 | NUR ---
William GIVENS CRNA here for epidural placement. Procedure explained, consent reviewed and signed by anesthesia. Questions answered to patient's satisfaction. Time out taken to verify correct patient/procedure. 1406 Patient up to side of bed, assisted into sitting position. 1410 Betadine prep done x3 and sterile drape applied. 1411 Local done, see anesthesia record. 1418 Test dose given, see anesthesia record for drug and dosage. Epidural catheter secured in place. Epidural placement complete. 1421 Assisted back into bed, monitors adjusted. Epidural dosed, see anesthesia record. Epidural infusing @12cc/hr stated per pump; see EMAR for further. Patient tolerated procedure well.
[2020-07-27] MEDS ORDERED: LACTATED RINGERS 1,000 ML IV SCH (14:30)
[2020-07-27] MEDS ORDERED: NALOXONE 0.4 MG/ML 1 ML (NARCAN) VIAL IV PRN (14:30)
[2020-07-27] MEDS ORDERED: diphenhydrAMINE 50 MG/ML INJ (BENADRYL) IV PRN (14:30)
[2020-07-27] MEDS ORDERED: ONDANSETRON 4 MG/2 ML (SDV) Z0FRAN IV PRN (14:30)
[2020-07-27] MEDS ORDERED: EPIDURAL (fentaNYL 2 MCG/ML BUPIVA 0.125%)100 ML BAG EPI PRN (14:30)
[2020-07-27] MEDS ORDERED: LIDOCAINE/EPI 2% 1:200,00 (XYLOCAINE) 10 ML VIAL ONE (15:45)
--- NOTE | 2020-07-27 16:51 | OB Labor & Delivery Record ---
Vag Delivery Note Vag Delivery Note Date of Delivery: 07/27/20 Preoperative Diagnosis: Tawana Bowers is a 32 /Para 5 / 4, Gestational Age 38 6/7 weeks with SROM/labor Postoperative Diagnosis: Same Surgeon: KATRINA WANG Anesthesia: epidural Delivery Type: vaginal Findings: Viable female infant, apgars [], weight [] Lacerations: none Intact placenta with 3 vessel cord. Loose nuchal and body cord delivered through, no shoulder dystocia Estimated Blood Loss: 150 ml Complications: None Condition: Stable Description of Procedure: 32 /Para 5 / 4,Gestational Age 38 6/7 weeks with SROM. She was not in labor. She was admitted and informed consent was obtained. Her labor course was remarkable for pitocin augmentation. She progressed to complete dilatation and began to push. She was then set up for delivery. The 's head was delivered atraumatically in the YANIV position. The shoulders and remainder of the 's body were then delivered without difficulty. Upon delivery, the head was held below the level of the perineum and the mouth and nares were bulb suctioned. The cord was doubly clamped and cut and the infant was handed off to the pediatric staff. An intact placenta with 3-vessel cord delivered via Sundeep and there was found to be minimal bleeding.~ Vigorous fundal massage was performed and the fundus was found to be firm. IV oxytocin was given. Examination of the vagina and perineum revealed no lacerations.. Following the delivery, sponge, instrument and needle counts were correct. Mom and baby were both in stable condition in the labor suite. Vitals - Labs Vital Signs - I&O Vital Signs Date Time Temp Pulse Resp B/P (MAP) Pulse Ox O2 Delivery O2 Flow Rate FiO2 07/27/20 15:36 101 18 123/68 (86) 100 Room Air 07/27/20 15:22 101 18 124/75 (91) 100 Room Air 07/27/20 15:14 36.9 07/27/20 15:07 106 18 123/74 (90) 100 Room Air 07/27/20 14:47 97 18 116/66 (83) 99 Room Air 07/27/20 14:43 99 18 113/61 (78) 99 Room Air 07/27/20 14:41 94 18 121/67 (85) Room Air 07/27/20 14:38 108 18 125/64 (84) 99 Room Air 07/27/20 14:35 103 18 119/58 (78) 100 Room Air 07/27/20 14:31 124 18 122/75 (91) 100 Room Air 07/27/20 14:28 99 18 123/68 (86) 100 Room Air 07/27/20 14:25 123 18 112/64 (80) 99 Room Air 07/27/20 14:22 116 18 110/59 (76) 99 Room Air 07/27/20 14:19 97 18 131/75 (93) 100 Room Air 07/27/20 14:16 90 18 137/78 (97) 100 Room Air 07/27/20 14:13 101 18 142/78 (99) 100 Room Air 07/27/20 14:10 106 18 153/75 (101) Room Air 07/27/20 14:08 104 18 148/78 (101) 100 Room Air 07/27/20 14:03 36.5 95 18 137/83 (101) Room Air 07/27/20 13:47 98 18 135/73 (93) Room Air 07/27/20 13:33 88 18 139/72 (94) Room Air 07/27/20 13:19 96 18 129/78 (95) Room Air 07/27/20 13:03 36.5 89 18 131/80 (97) Room Air 07/27/20 12:48 101 18 129/81 (97) Room Air 07/27/20 12:32 93 18 123/68 (86) Room Air 07/27/20 12:18 87 18 123/63 (83) Room Air 07/27/20 12:02 94 18 118/70 (86) Room Air 07/27/20 11:54 36.5 07/27/20 11:47 97 18 118/70 (86) Room Air 07/27/20 11:32 90 18 127/78 (94) Room Air 07/27/20 11:18 86 18 125/64 (84) Room Air 07/27/20 11:02 36.6 96 18 119/74 (89) Room Air 07/27/20 10:47 91 18 118/74 (89) Room Air 07/27/20 10:32 101 18 117/75 (89) Room Air 07/27/20 10:18 36.8 97 18 128/61 (83) Room Air 07/27/20 10:03 90 18 130/76 (94) Room Air 07/27/20 09:47 100 18 126/77 (93) Room Air 07/27/20 09:32 93 18 121/72 (88) Room Air 07/27/20 09:17 104 18 115/66 (82) Room Air 07/27/20 09:03 106 18 113/63 (80) Room Air 07/27/20 08:47 99 18 116/67 (83) Room Air 07/27/20 08:41 36.2 07/27/20 08:33 97 18 120/69 (86) Room Air 07/27/20 08:17 100 18 123/68 (86) Room Air 07/27/20 08:02 96 18 119/68 (85) Room Air 07/27/20 07:47 97 18 126/81 (96) Room Air 07/27/20 07:33 36.6 07/27/20 07:00 07/27/20 06:30 07/27/20 06:00 36.4 18 115/73 (87) 07/27/20 05:30 18 106/72 (83) 07/27/20 04:30 103 18 111/73 (86) 07/27/20 02:25 36.8 100 18 121/81 (94) 99 Room Air Labs Laboratory Tests 07/27/20 02:30: Urine Color YELLOW, Urine Clarity SL CLOUDY, Urine pH 6.0, Urine Specific Admire 1.015L, Urine Protein NEGATIVE, Urine Glucose (UA) NEGATIVE, Urine Ketones NEGATIVE, Urine Nitrite NEGATIVE, Urine Bilirubin NEGATIVE, Urine Urobilinogen 0.2, Urine Leukocyte Esterase 1+H, Urine RBC (Auto) NEGATIVE, Urine RBC NONE, Urine WBC 2-5, Urine Squamous Epithelial Cells 0-2, Urine Crystals NONE, Urine Bacteria TRACE, Urine Casts NONE, Urine Mucus NEGATIVE, Urine Culture Indicated NO 07/27/20 03:00: White Blood Count 15.9H, Red Blood Count 3.98, Hemoglobin 9.6L, Hematocrit 31L, Mean Corpuscular Volume 77L, Mean Corpuscular Hemoglobin 24L, Mean Corpuscular Hemoglobin Concent 32, Red Cell Distribution Width 15.4H, Platelet Count 183, Mean Platelet Volume 10.1, Immature Granulocyte % (Auto) 2, Neutrophils (%) (Auto) 77H, Lymphocytes (%) (Auto) 14, Monocytes (%) (Auto) 6, Eosinophils (%) (Auto) 1, Basophils (%) (Auto) 0, Neutrophils # (Auto) 12.2H, Lymphocytes # (Auto) 2.2, Monocytes # (Auto) 1.0, Eosinophils # (Auto) 0.1, Basophils # (Auto) 0.0, Immature Granulocyte # (Auto) 0.3H, Neutrophils % (Manual) 75, Lymphocytes % (Manual) 14, Monocytes % (Manual) 8, Eosinophils % (Manual) 3, Blood Morphology Comment NORMAL 07/27/20 03:45: KATRINA WANG DO Jul 27, 2020 16:51
[2020-07-27] MEDS ORDERED: IBUP-844 PO (16:53)
[2020-07-27] MEDS ORDERED: ACET-93 PO (16:53)
--- NOTE | 2020-07-27 16:54 | Discharge Inst-Women's Service ---
Discharge Inst-Women's Serv Depart Medication/Instructions New, Converted or Re-Newed RX: Transmitted to Pharmacy Final Diagnosis spontaneous rupture of membranes, not in labor 38 week gestation. antepartum iron def anemia Problems Reviewed?: Yes Consults/Follow Up Additional Follow Up: Yes (6 week pp exam) Activity Activity: Activity as Tolerated Driving Instructions: You May Drive NO SMOKING: NO SMOKING Nothing Inside Vagina: No Douching, No [place] (6 weeks), No Tampons Diet Discharge Diet: No Restrictions Symptoms to Report to : Swelling Increased, Bleeding Excessive, Pain Increased, Fever Over 101 Degrees F, Vaginal Bleeding Increase, Cramps in Feet or Legs, Vaginal Discharge FoKATRINA Price DO Jul 27, 2020 16:54
[2020-07-27] MEDS ORDERED: MEASLES,MUMPS,RUBELLA 1 EA INJ SQ ONE (17:00)
[2020-07-27] MEDS ORDERED: BENZOCAINE/MENTHOL (DERMOPLAST) 60 ML CAN TP PRN (17:00)
[2020-07-27] MEDS ORDERED: TETANUS,DIPTH,PERTUSS P/F (BOOSTRIX) 0.5 ML VIAL IM ONE (17:00)
[2020-07-27] MEDS ORDERED: WITCH HAZEL(TUCKS) 40 EA JAR TOP PRN (17:00)
--- NOTE | 2020-07-27 18:00 | NUR ---
REFER TO LABOR FLOW SHEET.
[2020-07-27] MEDS: IBUPROFEN 600 MG (MOTRIN) TAB PO SCH (18:02)
--- NOTE | 2020-07-27 19:09 | NUR ---
+ PERICARE. NEW PAD AND PANTIES ON. PT UP TO THE SIDE OF THE BED, NEW GOWN ON. PT AMBULATES TO BATHROOM WITH STANDBY ASSIST. + VOID. PT TRANSFERRED FROM -320 TO -310 VIA W/C IN STABLE CONDITION ACC BY THIS RN. PT TO BED.
[2020-07-27] MEDS: DOCUSATE SODIUM 100 MG (COLACE) CAP PO SCH (21:07)
[2020-07-27] MEDS: ACETAMINOPHEN 500 MG TAB (TYLENOL) PO SCH (21:07)
[2020-07-28] MEDS: IBUPROFEN 600 MG (MOTRIN) TAB PO SCH ×4 (00:09→17:54)
[2020-07-28 03:00] VITALS: BP 104/65
[2020-07-28] MEDS: ACETAMINOPHEN 500 MG TAB (TYLENOL) PO SCH ×2 (06:06→15:44)
[2020-07-28 06:07] VITALS: BP 116/81
[2020-07-28 06:31] LABS: BASOPHILS # (AUTO) 0.1 10^3/uL (0.0-0.1); BASOPHILS % (AUTO) 0 % (0-10); EOSINOPHILS # (AUTO) 0.1 10^3/uL (0.0-0.3); EOSINOPHILS % (AUTO) 1 % (0-10); HEMATOCRIT 28 % (35-52); HEMOGLOBIN 8.7 g/dL (11.5-16.0); LYMPHOCYTES # (AUTO) 2.5 10^3/uL (1.0-4.0); LYMPHOCYTES % (AUTO) 16 % (12-44); MEAN CORPUSCULAR HEMOGLOBIN 24 pg (25-34); MEAN CORPUSCULAR HGB CONC 31 g/dL (32-36); MEAN CORPUSCULAR VOLUME 79 fL (80-99); MEAN PLATELET VOLUME 10.9 fL (9.0-12.2); MONOCYTES % (AUTO) 6 % (0-12); NEUTROPHILS # (AUTO) 11.8 10^3/uL (1.8-7.8); NEUTROPHILS % (AUTO) 76 % (42-75); PLATELET COUNT 190 10^3/uL (130-400); WHITE BLOOD COUNT 15.7 10^3/uL (4.3-11.0)
--- NOTE | 2020-07-28 06:56 | Anesthesia-Regional Post-Op ---
Regional Patient Condition Mental Status: Alert, Oriented x3 Circulation: Same as Pre-Op Headache: Absent Sensation: Full Recovery Motor Block: Absent Post Op Complications Complications None Follow Up Care/Instructions Patient Instructions None needed. Anesthesia/Patient Condition Patient is doing well, no complaints, stable vital signs, no apparent adverse anesthesia problems. No complications reported per nursing. DANIEL GAUTAM CRNA Jul 28, 2020 06:56
[2020-07-28] MEDS ORDERED: PRENATAL VITAMIN 1 EA TAB PO SCH (07:00)
[2020-07-28] MEDS ORDERED: FERROUS SULF 325 MG (IRON) TAB PO SCH (08:00)
--- NOTE | 2020-07-28 08:20 | Postpartum Progress Note ---
Note Note Day # 1 s/p Subjective: Patient is without complaints. Ambulating, voiding. Tolerating a regular diet w ithout nausea or vomiting. Normal lochia. Pain is well controlled with oral pain medications. breast feeding. Objective: 07/27/20 07/28/20 07/28/20 22:29 03:00 06:07 Temp 36.2 36.2 36.2 Pulse 95 83 82 Resp 18 18 18 B/P (MAP) 112/70 (84) 104/65 (78) 116/81 (93) Pulse Ox 100 O2 Delivery Room Air Room Air Room Air 07/28/20 00:00 Intake Total 2900 ml Balance 2900 ml Laboratory Tests Test 07/28/20 06:00 Range/Units White Blood Count 15.7 H 4.3-11.0 10^3/uL Red Blood Count 3.60 L 3.80-5.11 10^6/uL Hemoglobin 8.7 L 11.5-16.0 g/dL Hematocrit 28 L 35-52 % Mean Corpuscular Volume 79 L 80-99 fL Mean Corpuscular Hemoglobin 24 L 25-34 pg Mean Corpuscular Hemoglobin Concent 31 L 32-36 g/dL Red Cell Distribution Width 15.5 H 10.0-14.5 % Platelet Count 190 130-400 10^3/uL Mean Platelet Volume 10.9 9.0-12.2 fL Immature Granulocyte % (Auto) 1 % Neutrophils (%) (Auto) 76 H 42-75 % Lymphocytes (%) (Auto) 16 12-44 % Monocytes (%) (Auto) 6 0-12 % Eosinophils (%) (Auto) 1 0-10 % Basophils (%) (Auto) 0 0-10 % Neutrophils # (Auto) 11.8 H 1.8-7.8 10^3/uL Lymphocytes # (Auto) 2.5 1.0-4.0 10^3/uL Monocytes # (Auto) 1.0 0.0-1.0 10^3/uL Eosinophils # (Auto) 0.1 0.0-0.3 10^3/uL Basophils # (Auto) 0.1 0.0-0.1 10^3/uL Immature Granulocyte # (Auto) 0.2 H 0.0-0.1 10^3/uL Physical Exam: General - Alert and oriented, no apparent distress Abdomen - Soft, appropriately tender to palpation, non-distended, fundus firm at umbilicus Extremities - no edema, negative Rex's bilaterally Assessment: 1. post- day # 1, status post spontaneous vaginal delivery. Recovering well, hemodynamically stable Plan: Routine care. Encourage breast feeding. Encourage ambulation. Ferrous sulfate supplementation. Plan for discharge today or tomorrow Vitals - Labs Vital Signs - I&O Vital Signs Date Time Temp Pulse Resp B/P (MAP) Pulse Ox O2 Delivery O2 Flow Rate FiO2 07/28/20 06:07 36.2 82 18 116/81 (93) 100 Room Air 07/28/20 03:00 36.2 83 18 104/65 (78) Room Air 07/27/20 22:29 36.2 95 18 112/70 (84) Room Air 07/27/20 18:36 105 18 130/60 (83) Room Air 07/27/20 18:06 36.4 108 18 127/69 (88) Room Air 07/27/20 17:50 36.3 98 18 132/71 (91) Room Air 07/27/20 17:20 36.4 98 18 127/61 (83) Room Air 07/27/20 17:05 97 18 123/65 (84) Room Air 07/27/20 16:51 36.5 93 18 115/58 (77) Room Air 07/27/20 16:37 105 18 133/76 (95) 100 Room Air 07/27/20 16:21 121 18 121/70 (87) 100 Room Air 07/27/20 16:07 98 18 119/66 (83) 100 Room Air 07/27/20 15:50 99 18 114/63 (80) 98 Room Air 07/27/20 15:47 36.6 07/27/20 15:36 101 18 123/68 (86) 100 Room Air 07/27/20 15:22 101 18 124/75 (91) 100 Room Air 07/27/20 15:14 36.9 07/27/20 15:07 106 18 123/74 (90) 100 Room Air 07/27/20 14:47 97 18 116/66 (83) 99 Room Air 07/27/20 14:43 99 18 113/61 (78) 99 Room Air 07/27/20 14:41 94 18 121/67 (85) Room Air 07/27/20 14:38 108 18 125/64 (84) 99 Room Air 07/27/20 14:35 103 18 119/58 (78) 100 Room Air 07/27/20 14:31 124 18 122/75 (91) 100 Room Air 07/27/20 14:28 99 18 123/68 (86) 100 Room Air 07/27/20 14:25 123 18 112/64 (80) 99 Room Air 07/27/20 14:22 116 18 110/59 (76) 99 Room Air 07/27/20 14:19 97 18 131/75 (93) 100 Room Air 07/27/20 14:16 90 18 137/78 (97) 100 Room Air 07/27/20 14:13 101 18 142/78 (99) 100 Room Air 07/27/20 14:10 106 18 153/75 (101) Room Air 07/27/20 14:08 104 18 148/78 (101) 100 Room Air 07/27/20 14:03 36.5 95 18 137/83 (101) Room Air 07/27/20 13:47 98 18 135/73 (93) Room Air 07/27/20 13:33 88 18 139/72 (94) Room Air 07/27/20 13:19 96 18 129/78 (95) Room Air 07/27/20 13:03 36.5 89 18 131/80 (97) Room Air 07/27/20 12:48 101 18 129/81 (97) Room Air 07/27/20 12:32 93 18 123/68 (86) Room Air 07/27/20 12:18 87 18 123/63 (83) Room Air 07/27/20 12:02 94 18 118/70 (86) Room Air 07/27/20 11:54 36.5 07/27/20 11:47 97 18 118/70 (86) Room Air 07/27/20 11:32 90 18 127/78 (94) Room Air 07/27/20 11:18 86 18 125/64 (84) Room Air 07/27/20 11:02 36.6 96 18 119/74 (89) Room Air 07/27/20 10:47 91 18 118/74 (89) Room Air 07/27/20 10:32 101 18 117/75 (89) Room Air 07/27/20 10:18 36.8 97 18 128/61 (83) Room Air 07/27/20 10:03 90 18 130/76 (94) Room Air 07/27/20 09:47 100 18 126/77 (93) Room Air 07/27/20 09:32 93 18 121/72 (88) Room Air 07/27/20 09:17 104 18 115/66 (82) Room Air 07/27/20 09:03 106 18 113/63 (80) Room Air 07/27/20 08:47 99 18 116/67 (83) Room Air 07/27/20 08:41 36.2 07/27/20 08:33 97 18 120/69 (86) Room Air I & O 07/28/20 07:00 Intake Total 3900 ml Balance 3900 ml Labs Laboratory Tests 07/28/20 06:00: White Blood Count 15.7H, Red Blood Count 3.60L, Hemoglobin 8.7L, Hematocrit 28L, Mean Corpuscular Volume 79L, Mean Corpuscular Hemoglobin 24L, Mean Corpuscular Hemoglobin Concent 31L, Red Cell Distribution Width 15.5H, Platelet Count 190, Mean Platelet Volume 10.9, Immature Granulocyte % (Auto) 1, Neutrophils (%) (Auto) 76H, Lymphocytes (%) (Auto) 16, Monocytes (%) (Auto) 6, Eosinophils (%) (Auto) 1, Basophils (%) (Auto) 0, Neutrophils # (Auto) 11.8H, Lymphocytes # (Auto) 2.5, Monocytes # (Auto) 1.0, Eosinophils # (Auto) 0.1, Basophils # (Auto) 0.1, Immature Granulocyte # (Auto) 0.2H KATRINA WANG DO Jul 28, 2020 08:20
[2020-07-28] MEDS: DOCUSATE SODIUM 100 MG (COLACE) CAP PO SCH (09:29)
[2020-07-28 09:30] VITALS: BP 107/74
--- NOTE | 2020-07-28 09:30 | NUR ---
AM shift assessment completed and vital signs obtained, see interventions. Plan of care reviewed. Patient verbalizes understanding and questions answered. Scheduled PNV, Iron, and Colace PO given. Patient reports showering last night. Saline lock DC'd, tip intact.
[2020-07-28 11:57] VITALS: BP 114/66
--- NOTE | 2020-07-28 15:39 | NUR ---
Discharge instructions and medications reviewed with patient both written and verbally. Patient verbalizes understanding and questions answered. Prescriptions e-scribed to [facility] by Dr. Bryan.
[2020-07-28 17:50] VITALS: BP 121/73
--- NOTE | 2020-07-28 19:10 | NUR ---
Patient discharged at this time via wheelchair and accompanied down to awaiting private vehicle by this RN. No sign or symptoms of distress noted.
--- NOTE | 2020-07-29 08:16 | Anesthesia-Regional Post-Op ---
Regional Patient Condition Mental Status: Alert, Oriented x3 Circulation: Same as Pre-Op Headache: Absent Sensation: Full Recovery Motor Block: Absent Post Op Complications Complications None Follow Up Care/Instructions Patient Instructions None needed. Anesthesia/Patient Condition Patient is doing well, no complaints, stable vital signs, no apparent adverse anesthesia problems. No complications reported per nursing. HECTOR ROSALES CRNA Jul 29, 2020 08:16
== END 2020-07-28 19:10 | disposition home or self-care (01) | DRG 807 ==
LOC: WSo 02:12 → LDRP 02:13 → WSo 02:42 → LDRP 02:52
PROVIDERS: ADMIT Obstetrics & Gynecology; ATTEND Obstetrics & Gynecology
PROC: 10E0XZZ Delivery of Products of Conception, External Approach (ICD-10-PCS; principal; 2020-07-27)
DX: O69.81X0 Labor and delivery complicated by cord around neck, without compression, not applicable or unspecified (principal); Z37.0 Single live birth; Z3A.38 38 weeks gestation of pregnancy; Z20.828 Contact with and (suspected) exposure to other viral communicable diseases
CPT/HCPCS: 36415; 81000; 85007; 85025; 85027; 86850; 86900; 86901; 87635; 99212

== ENCOUNTER → 2020-11-27 | Outpatient (CLI) | payer OTHER ==
[~2020-11-27] MED LIST changes: +ACET-93 PO; +CATHETER FLUSH 10 ML SYR IV PRN; -CLIN150C17 PO; +CLIN150C18 PO; +HOLD METFORMIN - RECEIVED CONTRAST 20 ML VIAL IV SCH; +IBUP-844 PO; +IOHEXOL 350 MG/ML 100 ML (OMNIPAQUE 350) VIAL IV ONE; +NS 100 ML (IVPB) BAG IV ONE
--- NOTE | 2020-11-27 09:09 | Diagnostic Imaging Report ---
PROCEDURE: CT abdomen and pelvis with contrast. TECHNIQUE: Multiple contiguous axial images were obtained through the abdomen and pelvis after administration of intravenous contrast. Auto Exposure Controls were utilized during the CT exam to meet ALARA standards for radiation dose reduction. All CT scans use one or more of the following dose optimizing techniques: automated exposure control, MA and/or KvP adjustment based on patient size and exam type or iterative reconstruction. INDICATION: Right-sided abdominal pain. No prior studies are available for comparison. The lung bases are clear. The liver and gallbladder are unremarkable. No biliary duct dilatation is seen. Pancreas and spleen are unremarkable. No adrenal mass is detected. Kidneys are unremarkable. Aorta is nonaneurysmal. Bowel loops appear to be normal caliber. There is no obstruction. Appendix is unremarkable. No inflammatory changes are seen. The uterus and bladder are unremarkable. There is no free fluid or fluid collection. IMPRESSION: Unremarkable CT of the abdomen and pelvis. No acute abnormality is detected. Dictated by: Dictated on workstation # [id number]
== END ==
LOC: RAD 08:45
PROVIDERS: ATTEND Nurse Practitioner Family
DX: R10.9 Unspecified abdominal pain (principal)
CPT/HCPCS: 74177

== ENCOUNTER 2021-05-12 09:07 | Emergency (ER) | payer OTHER ==
[~2021-05-12] VITALS: Ht 157 cm; Wt 62.0 kg
[~2021-05-12 09:07] MED LIST changes: -CATHETER FLUSH 10 ML SYR IV PRN; -CLIN150C18 PO; +CLIN150C20 PO; -HOLD METFORMIN - RECEIVED CONTRAST 20 ML VIAL IV SCH; -IOHEXOL 350 MG/ML 100 ML (OMNIPAQUE 350) VIAL IV ONE; -NS 100 ML (IVPB) BAG IV ONE
[2021-05-12] MEDS ORDERED: LACTATED RINGERS 1,000 ML IV ONE (10:00)
[2021-05-12 10:13] LABS: BASOPHILS % (AUTO) 0 % (0-10); EOSINOPHILS % (AUTO) 0 % (0-10); HEMATOCRIT 37 % (35-52); HEMOGLOBIN 11.3 g/dL (11.5-16.0); LYMPHOCYTES # (AUTO) 0.4 10^3/uL (1.0-4.0); LYMPHOCYTES % (AUTO) 7 % (12-44); MEAN CORPUSCULAR HEMOGLOBIN 23 pg (25-34); MEAN CORPUSCULAR HGB CONC 30 g/dL (32-36); MEAN CORPUSCULAR VOLUME 76 fL (80-99); MEAN PLATELET VOLUME 9.8 fL (9.0-12.2); MONOCYTES # (AUTO) 0.3 10^3/uL (0.0-1.0); MONOCYTES % (AUTO) 5 % (0-12); NEUTROPHILS # (AUTO) 5.6 10^3/uL (1.8-7.8); NEUTROPHILS % (AUTO) 88 % (42-75); PLATELET COUNT 201 10^3/uL (130-400); WHITE BLOOD COUNT 6.4 10^3/uL (4.3-11.0)
[2021-05-12 10:23] LABS: ALBUMIN 4.4 GM/DL (3.2-4.5); POTASSIUM 3.7 MMOL/L (3.6-5.0)
[2021-05-12 10:24] LABS: BAND NEUTROPHILS 2 %; CALCIUM 9.5 MG/DL (8.5-10.1); LYMPHOCYTES % (MANUAL) 9 %; MONOCYTES % (MANUAL) 5 %; NEUTROPHILS % (MANUAL) 84 %
[2021-05-12 10:25] LABS: HYPOCHROMASIA SLIGHT; INR 1.1 (0.8-1.4); MICROCYTOSIS SLIGHT; PROTHROMBIN TIME PATIENT 14.9 SEC (12.2-14.7)
[2021-05-12 10:26] LABS: TOTAL PROTEIN 7.9 GM/DL (6.4-8.2)
[2021-05-12 10:27] LABS: BILIRUBIN,TOTAL 0.6 MG/DL (0.1-1.0)
[2021-05-12 10:29] LABS: CREATININE SERUM 0.69 MG/DL (0.60-1.30)
--- NOTE | 2021-05-12 10:33 | Diagnostic Imaging Report ---
INDICATION: Tachycardia COMPARISON: 09/02/2016 FINDINGS: Frontal view of the chest demonstrates clear lungs bilaterally. The heart size is normal. There is no pneumothorax. Osseous structures are normal. IMPRESSION: No acute findings. Normal chest. Dictated by: Dictated on workstation # [id number]
--- NOTE | 2021-05-12 11:18 | ED Cardiac General ---
History of Present Illness General Chief Complaint: Cardiac/General Problems Stated Complaint: 2ND MODERNA YESTERDAY, HIGH HR Nursing Triage Note: PT ARRIVES TO ER WITH C/O HIGH HEART RATE AFTER SECOND MODERNA SHOT YESTERDAY. PT STATES SHE TYPICALLY HAS A HIGHER HEART RATE BUT CHECKED IT AT HOME EARLY THIS MORNING AND GOT 160 Source: patient Exam Limitations: no limitations History of Present Illness Date Seen by Provider: May 12, 2021 Time Seen by Provider: 09:49 Initial Comments This 30-year-old woman presents to the emergency room with complaints of tachycardia and chest pressure after having her second Materna Covid vaccination yesterday. She noted her heart rate to be subjectively fast last night. She had some chest heaviness or pressure when she laid down last night. This morning she checked her heart rate with a blood pressure cuff and it read as 160. Heart rate is ranging in the 120-140 range on assessment. She is not feeling chest pain now. She is afebrile. She has had problems with tachycardia of the past and reports a full cardiac work-up including stress test several years ago. 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 She denies any stimulant use or drug or alcohol use. 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 Allergies and Home Medications Allergies Coded Allergies: butorphanol (Verified Adverse Reaction, Mild, 07/27/20) hallucinations Patient Home Medication List Home Medication List Reviewed: Yes Acetaminophen (Acetaminophen) 500 Mg Tablet, 1,000 MG PO Q8HR Prescribed by: KATRINA WANG on 07/27/20 1653 Ferrous Sulfate (Iron) 325 Mg Tablet, 325 MG PO PRN, (Reported) Entered as Reported by: KULWINDER MARCH on 07/19/20 1149 Ibuprofen (Ibu) 600 Mg Tablet, 600 MG PO Q6HR Prescribed by: KATRINA WANG on 07/27/20 1653 Pnv with Ca,No.72/Iron/FA ( Vitamin with Low Iron) 1 Each Tablet, 1 EACH PO, (Reported) Entered as Reported by: GLENDY NULL on 06/21/202157 Review of Systems Review of Systems Constitutional: no symptoms reported EENTM: No Symptoms Reported Respiratory: No Symptoms Reported Cardiovascular: See HPI Gastrointestinal: No Symptoms Reported Genitourinary: No Symptoms Reported Musculoskeletal: no symptoms reported Skin: no symptoms reported Psychiatric/Neurological: No Symptoms Reported Endocrine: No Symptoms Reported Hematologic/Lymphatic: No Symptoms Reported Past Wxaiiwv-Egftsm-Xufkmv Hx Patient Social History Tobacco Use?: No Use of E-Cig and/or Vaping dev: No Substance use?: No Alcohol Use?: No Pt feels they are or have been: No Immunizations Up To Date Tetanus Booster (TDap): Less than 5yrs PED Vaccines UTD: Yes Influenza Vaccine Up-to-Date: Yes; Up-to-Date First/Initial COVID19 Vaccinat: MAR 2021 Second COVID19 Vaccination Pio: MAY 11 2021 COVID19 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: [employer] Seasonal Allergies Seasonal Allergies: No Past Medical History Surgeries: Yes Adenoidectomy, Tonsillectomy Respiratory: No Cardiac: No Neurological: No Last Menstrual Period: Apr 23, 2021 Reproductive Disorders: No Female Reproductive Disorders: Denies Sexually Transmitted Disease: No HIV/AIDS: No Gastrointestinal: No Musculoskeletal: No Endocrine: No HEENT: No Cancer: No Psychosocial: No Integumentary: No Blood Disorders: No Adverse Reaction/Blood Tranf: No Family Medical History FH: skin cancer 19 FATHER, Onset:40's - 50 Thyroid disease 19 FATHER, Onset:40's - 50 19 MOTHER, Onset:50's - 60 (Thyroid cancer) Physical Exam Vital Signs Vital Signs - First Documented 05/12/21 09:19 Temp 36.8 Pulse 120 Resp 20 B/P (MAP) 136/89 (105) Pulse Ox 100 O2 Delivery Room Air Capillary Refill : Less Than 3 Seconds Height, Weight, BMI Height: 5'3.00" Weight: 122lbs. 0.0oz. 55.670583el; 25.00 BMI Method:Stated General Appearance: No Apparent Distress, WD/WN HEENT: PERRL/EOMI, Normal ENT Inspection Neck: Normal Inspection Respiratory: Lungs Clear, Normal Breath Sounds, No Accessory Muscle Use Cardiovascular: No Edema, No Murmur, Tachycardia Gastrointestinal: Non Tender, Soft Extremity: Normal Inspection, Non Tender, No Pedal Edema Neurologic/Psychiatric: Alert, Oriented x3, Normal Mood/Affect Skin: Normal Color Progress/Results/Core Measures Results/Orders Lab Results Laboratory Tests Test 05/12/21 10:00 Range/Units White Blood Count 6.4 4.3-11.0 10^3/uL Red Blood Count 4.90 3.80-5.11 10^6/uL Hemoglobin 11.3 L 11.5-16.0 g/dL Hematocrit 37 35-52 % Mean Corpuscular Volume 76 L 80-99 fL Mean Corpuscular Hemoglobin 23 L 25-34 pg Mean Corpuscular Hemoglobin Concent 30 L 32-36 g/dL Red Cell Distribution Width 13.8 10.0-14.5 % Platelet Count 201 130-400 10^3/uL Mean Platelet Volume 9.8 9.0-12.2 fL Immature Granulocyte % (Auto) 0 % Neutrophils (%) (Auto) 88 H 42-75 % Lymphocytes (%) (Auto) 7 L 12-44 % Monocytes (%) (Auto) 5 0-12 % Eosinophils (%) (Auto) 0 0-10 % Basophils (%) (Auto) 0 0-10 % Neutrophils # (Auto) 5.6 1.8-7.8 10^3/uL Lymphocytes # (Auto) 0.4 L 1.0-4.0 10^3/uL Monocytes # (Auto) 0.3 0.0-1.0 10^3/uL Eosinophils # (Auto) 0.0 0.0-0.3 10^3/uL Basophils # (Auto) 0.0 0.0-0.1 10^3/uL Immature Granulocyte # (Auto) 0.0 0.0-0.1 10^3/uL Neutrophils % (Manual) 84 % Lymphocytes % (Manual) 9 % Monocytes % (Manual) 5 % Band Neutrophils 2 % Hypochromasia SLIGHT Microcytosis SLIGHT Prothrombin Time 14.9 H 12.2-14.7 SEC INR Comment 1.1 0.8-1.4 Activated Partial Thromboplast Time 38 H 24-35 SEC D-Dimer 0.47 0.00-0.49 UG/ML Sodium Level 138 135-145 MMOL/L Potassium Level 3.7 3.6-5.0 MMOL/L Chloride Level 107 98-107 MMOL/L Carbon Dioxide Level 20 L 21-32 MMOL/L Anion Gap 11 5-14 MMOL/L Blood Urea Nitrogen 5 L 7-18 MG/DL Creatinine 0.69 0.60-1.30 MG/DL Estimat Glomerular Filtration Rate 99 BUN/Creatinine Ratio 7 Glucose Level 95 70-105 MG/DL Calcium Level 9.5 8.5-10.1 MG/DL Corrected Calcium 9.2 8.5-10.1 MG/DL Magnesium Level 2.0 1.6-2.4 MG/DL Total Bilirubin 0.6 0.1-1.0 MG/DL Aspartate Amino Transf (AST/SGOT) 14 5-34 U/L Alanine Aminotransferase (ALT/SGPT) 13 0-55 U/L Alkaline Phosphatase 88 40-136 U/L Myoglobin 20.7 10.0-92.0 NG/ML Troponin I < 0.028 <0.028 NG/ML Total Protein 7.9 6.4-8.2 GM/DL Albumin 4.4 3.2-4.5 GM/DL TSH [place] Testing 1.10 0.35-4.94 UIU/ML Serum Test, Qualitative NEGATIVE NEGATIVE My Orders Orders - WILMAR VILLASENOR MD Cbc With Automated Diff (05/12/21 09:56) Magnesium (05/12/21 09:56) Chest 1 View, Ap/Pa Only (05/12/21 09:56) Ekg Tracing (05/12/21 09:56) Comprehensive Metabolic Panel (05/12/21 09:56) Myoglobin Serum (05/12/21 09:56) Protime With Inr (05/12/21 09:56) Partial Thromboplastin Time (05/12/21 09:56) O2 (05/12/21 09:56) Monitor-Rhythm Ecg Trace Only (05/12/21 09:56) Lipid Panel (05/13/21 06:00) Ed Iv/Invasive Line Start (05/12/21 09:56) Fibrin Degradation Products (05/12/21 09:56) Troponin I (05/12/21 09:56) Hcg,Qualitative Serum (05/12/21 09:56) Thyroid Analyzer (05/12/21 09:56) Lactated Ringers (Lr 1000 Ml Iv Solution (05/12/21 10:00) Manual Differential (05/12/21 10:00) Medications Given in ED Current Medications Medications Dose Ordered Sig/Norman Route Start Time Stop Time Status Last Admin Dose Admin Lactated Ringer's 1,000 ml @ 0 mls/hr Q0M ONCE IV 05/12/21 10:00 05/12/21 10:01 DC 05/12/21 10:13 1,000 MLS/HR Vital Signs/I&O 05/12/21 09:19 Temp 36.8 Pulse 120 Resp 20 B/P (MAP) 136/89 (105) Pulse Ox 100 O2 Delivery Room Air Blood Pressure Mean: 105 Progress Progress Note : Progress Note Work-up was unremarkable. After IV hydration heart rate was in the 120s. Patient was advised to schedule follow-up appointment with Dr. Villarreal. Initial ECG Impression Date: May 12, 2021 Initial ECG Impression Time: 09:24 Initial ECG Rate: 124 Initial ECG Rhythm: S.Tach Comment Sinus tachycardia with no ST elevation or depression. No abnormal intervals or axis deviation. Diagnostic Imaging Diagonstic Imaging: Xray Plain Films/CT/US/NM/MRI: chest Comments NAME: NESTOR KOO REC#: [id number] PT STATUS: REG ER : 1990 PHYSICIAN: WILMAR VILLASENOR MD ADMIT DATE: 05/12/21/ER Signed Date of Exam:05/12/21 CHEST 1 VIEW, AP/PA ONLY INDICATION: Tachycardia COMPARISON: 09/02/2016 FINDINGS: Frontal view of the chest demonstrates clear lungs bilaterally. The heart size is normal. There is no pneumothorax. Osseous structures are normal. IMPRESSION: No acute findings. Normal chest. Dictated by: Dictated on workstation # [id number] Dict: 05/12/21 1031 Trans: 05/12/21 1032 [facility] [id number] Interpreted by: MILADIS CONRAD Electronically signed by: MILADIS CONRAD 05/12/21 1032 Departure Impression Primary Impression: Sinus tachycardia Additional Impressions: Chest pressure Vaccination complication Qualified Codes: T88.1XXA - Other complications following immunization, not elsewhere classified, initial encounter Disposition: 01 HOME, SELF-CARE Condition: Stable Departure-Patient Inst. Decision time for Depature: 11:16 Referrals: NO,LOCAL PHYSICIAN (PCP) Primary Care Physician KRISHNA GARZA APRN (Family) Primary Care Physician Patient Instructions: Sinus Tachycardia (DC) Add. Discharge Instructions: Drink plenty of clear liquids to stay well-hydrated. You may take ibuprofen up to 600 mg every 6 hours and/or Tylenol (acetaminophen) up to 1000 mg every 6 hours as needed for discomfort, fever, or rapid heart rate. Return to care if you have worsening symptoms, especially if you have heart rate greater than 140 without exertion. Follow-up with Dr. Villarreal soon as possible. Please call today to schedule an appointment. Avoid any stimulants such as caffeine, energy drinks, decongestants, diet pills, workout supplements, illicit substances, etc. All discharge instructions reviewed with patient and/or family. Voiced understanding. Work/School Note: Work Release Form Date Seen in the Emergency Department: May 12, 2021 Return to Work: May 13, 2021 Restrictions: Return-No Fever (24hrs) Copy Copies To 1: SWATI VILLARREAL MD FACP FAC CCDS WILMAR VILLASENOR MD May 12, 2021 11:18
[2021-05-12 11:30] VITALS: BP 142/92
== END 2021-05-12 11:32 | disposition home or self-care (01) ==
LOC: EDUNIT# 09:07 → ER 09:10
DX: R00.0 Tachycardia, unspecified (principal); R07.89 Other chest pain; T88.1XXA Other complications following immunization, not elsewhere classified, initial encounter
CPT/HCPCS: 36415; 71045; 80053; 83735; 83874; 84443; 84484; 84703; 85007; 85027; 85379; 85610; 85730; 93005; 93041

== ENCOUNTER → 2021-06-07 | Outpatient (CLI) | payer OTHER ==
--- NOTE | 2021-06-07 13:13 | Diagnostic Imaging Report ---
PROCEDURE: US PELVIC (NON OB) TECHNIQUE: Multiple real-time grayscale images were obtained over the pelvis in various projections transabdominally. INDICATION: Heavy menses. FINDINGS: Uterus measures 11.2 x 4.3 x 5.2 cm. Endometrium is 12 mm in thickness. Minimal fluid in the endometrium is noted. No myometrial mass is detected. Right ovary measures 3.0 x 3.0 x 2.5 cm and left ovary measures 2.6 x 1.2 x 2.3 cm. Right ovary contains a 2.2 cm cyst. There is blood flow to both ovaries. No significant free fluid is detected. IMPRESSION: 2.2 cm right ovarian cyst. The study is otherwise unremarkable. Dictated by: Dictated on workstation # [id number]
== END ==
LOC: RAD 10:00
PROVIDERS: ATTEND Obstetrics & Gynecology
DX: N83.201 Unspecified ovarian cyst, right side (principal); D25.9 Leiomyoma of uterus, unspecified
CPT/HCPCS: 76856

== ENCOUNTER 2021-06-22 09:00 | Outpatient (RCR) | payer OTHER | END 2021-07-23 | LOC: CARD 09:00 | PROVIDERS: ATTEND Internal Medicine Cardiovascular Disease | DX: R00.2 Palpitations (principal) | CPT/HCPCS: 93270 ==

== ENCOUNTER → 2021-09-21 | Outpatient (CLI) | payer OTHER | LOC: CARD 09:00 | PROVIDERS: ATTEND Nurse Practitioner Family | DX: R00.2 Palpitations (principal); R07.89 Other chest pain | CPT/HCPCS: 93306; 93351 ==

== ENCOUNTER → 2022-07-12 | Day surgery (SDC) | payer OTHER ==
[~2022-07-12] VITALS: Ht 160 cm; Wt 61.8 kg
[~2022-07-12] MED LIST changes: +LIDOCAINE 1% INJ 20 ML VIAL INJ ONE; +LIDOCAINE 1% INJ 30 ML (XYLOCAINE) VIAL ONE
[2022-07-12 09:04] VITALS: BP 146/94
--- NOTE | 2022-07-12 22:16 | OPERATIVE REPORT ---
DATE OF SERVICE: 07/12/2022 INDICATIONS: The patient is a 31-year-old lady who has been experiencing palpitations and chest discomfort for a significant length of time. We have not been able to document the rhythm during episodes on Holter monitoring or on event monitoring. She continues to have significant symptoms that cause her symptoms and apprehension. After a long discussion, she requested that we proceed with implantable loop recorder implantation. She provided informed consent. DESCRIPTION OF PROCEDURE: [facility] The left prepectoral area was prepared and draped in the usual sterile fashion. 1% lidocaine used for local anesthesia. The tools provided with the [employer] LINQ device were used to make a subcutaneous pocket anterior to the fourth intercostal space, into which the device was placed and the wound edges were closed using Dermabond and Steri-Strips. Serial number of the devices are [id number]. Job ID: [id number] DocumentID: [id number] Dictated Date: 07/12/2022 12:18:59 Environmental Services Coordinator Date: 07/12/2022 22:14:00 Dictated By: SWATI MATHEWS MD; RADHA; FACP; FACC; LOC
== END | disposition home or self-care (01) ==
LOC: CATH 08:43
PROVIDERS: ATTEND Internal Medicine Cardiovascular Disease
DX: R00.2 Palpitations (principal); R07.89 Other chest pain
CPT/HCPCS: 33285; C1764

== ENCOUNTER → 2023-06-02 | Outpatient (CLI) | payer OTHER, SELFPAY ==
[~2023-06-02] MED LIST changes: -LIDOCAINE 1% INJ 20 ML VIAL INJ ONE; -LIDOCAINE 1% INJ 30 ML (XYLOCAINE) VIAL ONE
--- NOTE | 2023-06-02 18:03 | Diagnostic Imaging Report ---
PROCEDURE: US Thyroid. TECHNIQUE: Multiple real-time grayscale images were obtained of the thyroid in various projections. INDICATION: Thyroid disease. FINDINGS: The right thyroid lobe is 4.8 x 2.0 x 1.0 cm and contains a tiny 3 mm hypoechoic nodule in the upper pole. The left lobe 4.2 x 1.5 x 1.3 cm and a tiny midpole cyst of 3 mm. No suspicious thyroidal mass. No findings of neoplasm. IMPRESSION: Tiny benign 3 mm subcentimeter thyroid nodules, normal thyroid volume. Normal color flow. No suspicious finding. Dictated by: Dictated on workstation # [id number]
== END ==
LOC: RAD 08:27
PROVIDERS: ATTEND Nurse Practitioner Women's Health
DX: Z13.29 Encounter for screening for other suspected endocrine disorder (principal); E04.1 Nontoxic single thyroid nodule
CPT/HCPCS: 76536